=== PATIENT | female | born 1985 | race African-American/Black ===

== ENCOUNTER → 2020-09-27 | Outpatient (CLI) | payer OTHER ==
[2020-09-27 19:08] LABS: ESTRADIOL LEVEL 10.9 pg/mL (.); FSH 8.3 mIU/mL (.); LUTEINIZING HORMONE 4.2 mIU/mL (.); PROGESTERONE <0.1 ng/mL (.)
== END ==
LOC: LAB 09:19
PROVIDERS: ATTEND Nurse Practitioner Women's Health
DX: R23.2 Flushing (principal)
CPT/HCPCS: 36415; 82670; 83001; 83002; 83036; 84144; 84443

== ENCOUNTER → 2021-05-30 | Outpatient (CLI) | payer OTHER ==
[2021-05-30 10:08] LABS: BASO % 1 % (0-3); EOS % 1 % (0-3); HEMATOCRIT 41.7 % (36.0-47.0); LYMPH # 1.9 x10^3/uL (1.0-4.8); LYMPH % 45 % (24-48); MEAN CORPUSCULAR HEMOGLOBIN 31 pg (25-35); MEAN CORPUSCULAR HGB CONC 34 g/dL (31-37); MEAN CORPUSCULAR VOLUME 92 fL (79-100); MONO # 0.4 x10^3/uL (0.0-1.1); MONO % 9 % (0-9); NEUT # 1.9 x10^3uL (1.8-7.7); NEUT % 44 % (31-73); PLATELET COUNT 211 x10^3/uL (140-400); RED BLOOD COUNT 4.52 x10^6/uL (3.50-5.40); WHITE BLOOD COUNT 4.3 x10^3/uL (4.0-11.0)
[2021-05-30 10:13] LABS: ALBUMIN 3.6 g/dL (3.4-5.0); ALBUMIN/GLOBULIN RATIO 1.1 (1.0-1.7); GFR 77.3; POTASSIUM 4.3 mmol/L (3.5-5.1); TOTAL BILIRUBIN 0.4 mg/dL (0.2-1.0); TOTAL PROTEIN 6.9 g/dL (6.4-8.2)
[2021-05-30 10:26] LABS: CALCIUM 8.2 mg/dL (8.5-10.1)
[2021-05-30 14:44] LABS: FREE T4 0.81 ng/dL (0.76-1.46); THYROID STIM HORMONE (TSH) 0.589 uIU/mL (0.358-3.740)
[2021-05-31 06:07] LABS: HEMOGLOBIN A1C 5.3 % (4.8-5.6)
[2021-05-31 07:19] LABS: DHEA SO4 256.4 ug/dL (84.8-378.0); ESTRADIOL LEVEL 50.3 pg/mL (.); FSH 10.2 mIU/mL (.); LUTEINIZING HORMONE 7.8 mIU/mL (.); PROGESTERONE <0.1 ng/mL (.); T3 TOTAL 99 ng/dL (71-180)
[2021-05-31 13:09] LABS: INSULIN LEVEL 9.6 uIU/mL (2.6-24.9)
[2021-06-05 12:08] LABS: TESTOSTERONE TOTAL 24 ng/dL (8-60)
== END ==
LOC: LAB 08:02
PROVIDERS: ATTEND Nurse Practitioner Women's Health
DX: R23.2 Flushing (principal)
CPT/HCPCS: 36415; 80053; 82627; 82670; 83001; 83002; 83036; 83525; 84144; 84402; 84403; 84439; 84443; 84480; 85025